=== PATIENT | female | born 1955 | race African-American/Black ===

== ENCOUNTER 2017-08-21 14:04 | Emergency (ER) | payer OTHER ==
[~2017-08-21] VITALS: Ht 144.8 cm; Wt 60.0 kg
[2017-08-21 14:33] VITALS: BP 179/93; PULSE 75; RESP 18; TEMP 98.1; O2SAT 100
[2017-08-21 14:44] VITALS: BP 183/120; PULSE 74; RESP 25; O2SAT 99
--- NOTE | 2017-08-21 14:53 | PD ---
HPI Chief Complaint: Dizziness Time Seen by Provider: 14:42 Travel History International Travel<30 days: No Contact w/Intl Traveler<30days: No Traveled to known affect area: No History of Present Illness HPI This is a 62-year-old female who presents to the emergency department with lightheadedness and dizziness that started while she was visiting her father in the intensive care unit. She had to slump against a wall did not pass out. She did not lose consciousness or fall. The symptoms lasted for several minutes and then subsided. She did not take her diabetes or heart medications this morning. Her blood sugar has been running high and she says she has been snacking on a lot of sugary foods. She denies any chest pain or shortness of breath. PFSH Past Medical History Narrative Medical heart disease diabetes Diabetes: Yes Social History Tobacco Use: No Allergies-Medications (Allergen,Severity, Reaction): Coded Allergies: tetracycline (Verified Allergy, Severe, Hives, 08/21/17) Reported Meds & Prescriptions Reported Meds & Active Scripts Active Reported Gabapentin 300 Mg Cap 300 Mg PO BID Aspirin 325 Mg Tab 325 Mg PO DAILY Plavix (Clopidogrel Bisulfate) 75 Mg Tab 75 Mg PO DAILY Novolin 70-30 Inj (Insulin Human Isoph/Insulin Regular) 1,000 Unit/10 Ml Vial 40 Units SQ HS Glipizide 10 Mg Tab 10 Mg PO BIDAC Take 30 minutes before a meal Review of Systems Except as stated in HPI: all other systems reviewed are Neg Physical Exam Narrative GENERAL:Well appearing, no acute distress SKIN: Focused skin assessment warm and dry. HEAD: Atraumatic. Normocephalic. EYES: Pupils equal and round. No injection or drainage. ENT: Moist mucous membranes NECK: Trachea midline. CARDIOVASCULAR: Regular rate and rhythm. No murmur appreciated. RESPIRATORY: Clear to auscultation. Breath sounds equal bilaterally. GASTROINTESTINAL: Abdomen soft, non-tender, nondistended. MUSCULOSKELETAL: No obvious deformities. NEUROLOGICAL: Awake and alert. No obvious cranial nerve deficits. Moving all extremities. PSYCHIATRIC: Appropriate mood and affect; insight and judgment normal. Data Data Last Documented VS Vital Signs Date Time Temp Pulse Resp B/P (MAP) Pulse Ox O2 Delivery O2 Flow Rate FiO2 08/21/17 16:49 08/21/17 14:44 74 25 99 Room Air 08/21/17 14:33 98.1 Orders Orders Complete Blood Count With Diff (08/21/17 14:49) Comprehensive Metabolic Panel (08/21/17 14:49) Electrocardiogram (08/21/17 ) Sodium Chlor 0.9% 1000 Ml Inj (Ns 1000 M (08/21/17 15:00) Insulin Human Regular Inj (Novolin R Inj (08/21/17 15:00) Sodium Chlor 0.9% 1000 Ml Inj (Ns 1000 M (08/21/17 16:15) Ed Discharge Order (08/21/17 16:43) Labs Laboratory Tests Test 08/21/17 15:40 White Blood Count 4.4 TH/MM3 Red Blood Count 4.53 MIL/MM3 Hemoglobin 14.6 GM/DL Hematocrit 44.1 % Mean Corpuscular Volume 97.3 FL Mean Corpuscular Hemoglobin 32.3 PG Mean Corpuscular Hemoglobin Concent 33.2 % Red Cell Distribution Width 14.3 % Platelet Count 148 TH/MM3 Mean Platelet Volume 9.8 FL Neutrophils (%) (Auto) 25.7 % Lymphocytes (%) (Auto) 64.7 % Monocytes (%) (Auto) 7.8 % Eosinophils (%) (Auto) 1.5 % Basophils (%) (Auto) 0.3 % Neutrophils # (Auto) 1.1 TH/MM3 Lymphocytes # (Auto) 2.8 TH/MM3 Monocytes # (Auto) 0.3 TH/MM3 Eosinophils # (Auto) 0.1 TH/MM3 Basophils # (Auto) 0.0 TH/MM3 CBC Comment AUTO DIFF Differential Comment AUTO DIFF CONFIRMED Platelet Estimate LOW Platelet Morphology Comment NORMAL Red Cell Morphology Comment NORMAL Blood Urea Nitrogen 14 MG/DL Creatinine 0.96 MG/DL Random Glucose 376 MG/DL Total Protein 7.4 GM/DL Albumin 2.8 GM/DL Calcium Level 8.8 MG/DL Alkaline Phosphatase 251 U/L Aspartate Amino Transf (AST/SGOT) 132 U/L Alanine Aminotransferase (ALT/SGPT) 109 U/L Total Bilirubin 0.4 MG/DL Sodium Level 140 MEQ/L Potassium Level 4.0 MEQ/L Chloride Level 102 MEQ/L Carbon Dioxide Level 32.8 MEQ/L Anion Gap 5 MEQ/L Estimat Glomerular Filtration Rate 71 ML/MIN [facility] Medical Decision Making Medical Screen Exam Complete: Yes Emergency Medical Condition: Yes Interpretation(s) EKG: Normal sinus rhythm with no ST changes No leukocytosis Differential Diagnosis Hyperglycemia, arrhythmia, electrolyte abnormality, dehydration Narrative Course This is a 62-year-old female who presents to the emergency department with lightheadedness and dizziness. She did not take her home medications this morning. She was found to be hyperglycemic by our first responders with a blood sugar in the 400s. She was given a liter of IV fluid and 6 units of insulin. Her blood sugar improved. Patient wanted to be discharged prior to her electrolytes resulting.. Patient will be discharged home. I suspect her symptoms are secondary to dehydration in the setting of hyperglycemia. Pt. does have transaminitis and elevated alkaline phosphatase. I am not certain the patient's baseline. I did try to call the patient but no unanswered. They were aware upon leaving that they did not have her lab results back. Diagnosis Primary Impression: Dehydration Additional Impression: Hyperglycemia Patient Instructions: General Instructions Additional Instructions: If you develop severe chest pain, shortness of breath, sweating, lightheadedness , dizziness or difficulty breathing return to the emergency department immediately. Followup with your primary care physician in 2-3 days if your symptoms are not resolved. Med/Other Pt SpecificInfo: No Change to Meds Disposition: 01 DISCHARGE HOME Condition: Stable Pilar Greene MD August 21, 2017 14:53
[2017-08-21] MEDS ORDERED: INSULIN HUMAN REGULAR 1,000 UNITS/10 ML VIAL IV PUSH ONE (15:00)
[2017-08-21] MEDS ORDERED: SODIUM CHLOR 0.9% 1000 ML INJ 1,000 ML IV ONE (15:00)
[2017-08-21] MEDS ORDERED: PLAV75TA29 PO (15:02)
[2017-08-21] MEDS ORDERED: ASPI-183 PO (15:02)
[2017-08-21] MEDS ORDERED: GABA300C5 PO (15:02)
[2017-08-21] MEDS ORDERED: NOVO7030P2 SQ (15:02)
[2017-08-21] MEDS ORDERED: GLIP10TA6 PO (15:02)
[2017-08-21 16:11] LABS: AUTOMATED NEUTROPHIL # 1.1 TH/MM3 (1.8-7.7); BASOPHIL % 0.3 % (0.0-2.0); EOSINOPHIL # 0.1 TH/MM3 (0-0.4); EOSINOPHIL % 1.5 % (0.0-4.0); HEMATOCRIT 44.1 % (35.0-46.0); HEMOGLOBIN 14.6 GM/DL (11.6-15.3); LYMPH % 64.7 % (9.0-44.0); LYMPHOCYTE # 2.8 TH/MM3 (1.0-4.8); MEAN CELL VOLUME 97.3 FL (80.0-100.0); MEAN CORPUSCULAR HEMOGLOBIN 32.3 PG (27.0-34.0); MEAN CORPUSCULAR HGB CONC 33.2 % (32.0-36.0); MEAN PLATELET VOLUME 9.8 FL (7.0-11.0); MONO % 7.8 % (0.0-8.0); MONOCYTE # 0.3 TH/MM3 (0-0.9); NEUT % 25.7 % (16.0-70.0); PLATELET COUNT 148 TH/MM3 (150-450); RED BLOOD COUNT 4.53 MIL/MM3 (4.00-5.30); RED CELL DISTRIBUTION WIDTH 14.3 % (11.6-17.2); WHITE BLOOD COUNT 4.4 TH/MM3 (4.0-11.0)
[2017-08-21] MEDS ORDERED: SODIUM CHLOR 0.9% 1000 ML INJ 1,000 ML IV SCH (16:15)
[2017-08-21 16:54] LABS: ALBUMIN 2.8 GM/DL (3.4-5.0); BLOOD UREA NITROGEN 14 MG/DL (7-18); CREATININE 0.96 MG/DL (0.50-1.00); GLOMERULAR FILTRATION RATE 71 ML/MIN (>89); GLUCOSE,RANDOM 376 MG/DL (74-106); TOTAL PROTEIN 7.4 GM/DL (6.4-8.2)
[2017-08-21 16:55] LABS: ALKALINE PHOSPHATASE 251 U/L (45-117); ALT (GPT) 109 U/L (10-53); AST (GOT) 132 U/L (15-37); BICARBONATE 32.8 MEQ/L (21.0-32.0); CALCIUM 8.8 MG/DL (8.5-10.1); CHLORIDE 102 MEQ/L (98-107); SODIUM (NA) 140 MEQ/L (136-145); TOTAL BILIRUBIN ADULT 0.4 MG/DL (0.2-1.0)
--- NOTE | 2017-08-22 09:54 | EKG ---
Date Performed: 08/21/2017 Time Performed: 14:57:07 PTAGE: 62 years EKG: Sinus rhythm WITH OCCASIONAL SUPRAVENTRICULAR PREMATURE COMPLEXES BASELINE ARTIFACT BORDERLINE ECG NO PREVIOUS TRACING DOCTOR: Nicole Hicks Interpretating Date/Time 08/22/2017 09:54:00
== END 2017-08-21 16:45 | disposition home or self-care (01) ==
LOC: NEPC 14:04
DX: E86.0 Dehydration (principal); E11.65 Type 2 diabetes mellitus with hyperglycemia; Z79.4 Long term (current) use of insulin
CPT/HCPCS: 80053; 85025; 93005; 96361; 96374; 99284; J1815; J7030